=== PATIENT | male | born 1980 | race Caucasian/White ===

== ENCOUNTER 2016-10-18 13:42 | Outpatient (CLI) ==
[2013-05-24 00:30] VITALS: BMI 34.4
[2016-10-18 14:00] LABS: HEMATOCRIT 54.1 % (42.0-52.0); HEMOGLOBIN 17.2 g/dl (14.0-18.0); MEAN CORPUSCULAR HEMOGLOBIN 26.7 pg (27.0-31.0); MEAN CORPUSCULAR HGB CONC 31.8 (31.8-35.4); RED BLOOD COUNT 6.44 10^6/ul (4.70-6.10); WHITE BLOOD COUNT 6.94 K/ul (4.2-10.2)
== END 2016-10-18 13:43 | disposition home or self-care (01) ==
LOC: LAB 13:42
PROVIDERS: ATTEND Internal Medicine Hematology & Oncology
DX: D75.1 Secondary polycythemia (principal)
CPT/HCPCS: 36415; 85027; 99195

== ENCOUNTER → 2017-02-27 | Outpatient (POV) ==
[2013-05-24 00:30] VITALS: BMI 34.4
== END ==
LOC: OUTPT 00:01
PROVIDERS: ATTEND Otolaryngology
DX: H93.13 Tinnitus, bilateral (principal)
CPT/HCPCS: 92557; 92567

== ENCOUNTER 2017-04-23 16:50 | Emergency (ER) | payer OTHER ==
[2017-04-23 16:57] VITALS: BP 160/105; TEMP 99; BMI 40.1
--- NOTE | 2017-04-23 17:11 | ED.PDOC ---
General ED Provider: Dr. JEAN PAUL DEVLIN Chief Complaint: Earache Stated Complaint: bilateral ear pain Time Seen by Physician: 17:00 Mode of Arrival: Walk-In Information Source: Patient Exam Limitations: No limitations Primary Care Provider: ALIN GONZALEZ Nursing and Triage Documentation Reviewed and Agree: Yes EENT Complaint Exam - Ear Complaint/Exam Onset/Duration: 1 day Symptoms Are: Still present Timing: Constant Initial Severity: Moderate Current Severity: Mild Character: Reports: Dull pain Aggravating: Reports: None Alleviating: Reports: None Associated Signs and Symptoms: Denies: Ear trauma, Ear swelling, Discharge, Fever, Hearing loss, Bleeding, Sore throat, Headache, URI symptoms, Foreign body sensation, Rash, Pain to external ear, Pain to external face Ear Surgical History: None Vesicles to External Pinna: No Vesicles to Tragus: No TMJ Tenderness: None Mastoid Tenderness: None Tragal Tenderness: None External Canal: Normal Differential Diagnoses: Otitis Media Review of Systems - Review Of Systems Constitutional: Reports: No symptoms Eyes: Reports: No symptoms Ears, Nose, Mouth, Throat: Reports: Ear pain Respiratory: Reports: No symptoms Cardiac: Reports: No symptoms GI: Reports: No symptoms : Reports: No symptoms Musculoskeletal: Reports: No symptoms Skin: Reports: No symptoms Neurological: Reports: No symptoms Endocrine: Reports: No symptoms Hematologic/Lymphatic: Reports: No symptoms All Other Systems: Reviewed and Negative Past Medical History - Past Medical History Previously Healthy: Yes Endocrine: Reports: None Cardiovascular: Reports: Hypertension Respiratory: Reports: None Hematological: Reports: None Gastrointestinal: Reports: None Genitourinary: Reports: None Neuro/Psych: Reports: None Musculoskeletal: Reports: None Cancer: Reports: None - Surgical History General Surgical History: Reports: None - Family History Family History: Reports: Unknown - Social History Smoking Status: Current every day smoker Hx Substance Use: No Alcohol Screening: None Physical Exam - Physical Exam Appearance: Well-appearing, No pain distress, Well-nourished Eyes: ESSENCE, EOMI, Conjunctiva clear ENT: Ears normal, Nose normal, Oropharynx normal Respiratory: Airway patent, Breath sounds clear, Breath sounds equal, Respirations nonlabored Cardiovascular: RRR, Pulses normal, No rub, No murmur GI/: Soft, Nontender, No masses, Bowel sounds normal, No Organomegaly Musculoskeletal: Normal strength, ROM intact, No edema, No calf tenderness Skin: Warm, Dry, Normal color Neurological: Sensation intact, Motor intact, Reflexes intact, Cranial nerves intact, Alert, Oriented Psychiatric: Affect appropriate, Mood appropriate Critical Care Note - Critical Care Note Total Time (mins): 0 Course - Course Vital Signs: Temp Pulse Resp BP Pulse Ox 04/23/17 16:50 99 F 95 H 20 160/105 H 97 Departure - Departure Time of Disposition: 17:10 Disposition: HOME SELF-CARE Discharge Problem: Otitis media Qualifiers: Otitis media type: unspecified Chronicity: acute Laterality: bilateral Instructions: Otitis Media (ED) Condition: Good Pt referred to PMD for follow-up: Yes Allergies/Adverse Reactions: Allergies isolome Adverse Reaction (Uncoded 04/23/17 16:56) Home Medications: Ambulatory Orders Clonidine HCl [Catapres] 0.2 mg PO BID 05/20/13 Levothyroxine Sodium [Synthroid] 25 mcg PO QDAC 05/20/13 Triamterene/Hydrochlorothiazid [Dyazide] 1 cap PO BID 05/20/13 Aspirin [Aspirin Chewable] 81 mg PO DAILY 05/23/13 [place]-3 Fatty Acids/Fish Oil [Fish Oil 1,000 mg Softgel] 1 each PO DAILY Disposition Discussed With: Patient, Family
== END 2017-04-23 17:15 | disposition home or self-care (01) ==
LOC: ED 16:50
DX: H66.93 Otitis media, unspecified, bilateral (principal); F17.210 Nicotine dependence, cigarettes, uncomplicated
CPT/HCPCS: 99282

== ENCOUNTER 2017-05-18 15:01 | Emergency (ER) ==
--- NOTE | 2017-05-18 15:07 | ED.PDOC ---
General ED Provider: Dr. REGIS GRACE JR Stated Complaint: both ears are painful, no drainage. Recently treated for ear infection in April.[End]woke up this morning with bilateral ear ache 99.6 91 20 96% 162/99 8/10. htn depr anx Time Seen by Physician: 15:13 Mode of Arrival: Walk-In Information Source: Patient Exam Limitations: Other [facility] Nursing and Triage Documentation Reviewed and Agree: No Review of Systems - Review Of Systems Constitutional: Reports: No symptoms Eyes: Reports: No symptoms Ears, Nose, Mouth, Throat: Reports: Ear pain Respiratory: Reports: No symptoms Cardiac: Reports: No symptoms GI: Reports: No symptoms : Reports: No symptoms Musculoskeletal: Reports: No symptoms Skin: Reports: No symptoms Neurological: Reports: No symptoms Endocrine: Reports: No symptoms Hematologic/Lymphatic: Reports: No symptoms All Other Systems: Other Past Medical History - Past Medical History Previously Healthy: Yes Endocrine: Reports: None, Hypothyroid Cardiovascular: Reports: Hypertension, A-Fib, Other (heart murmur) Respiratory: Reports: None Hematological: Reports: None Gastrointestinal: Reports: None Genitourinary: Reports: None Neuro/Psych: Reports: None, Other (MR ) Musculoskeletal: Reports: None Cancer: Reports: None Other Pertinent Past Medical History: 04/23/17bilateral otitis, hx polycythemia vera, - Surgical History General Surgical History: Reports: None, Cholecystectomy, Hernia Repair, Other ( ear surgery), Unknown (gallbladder, ear surgery, inguinal hernia repair) - Family History Family History: Reports: Unknown - Social History Smoking Status: Current every day smoker Hx Substance Use: No Alcohol Screening: None Physical Exam - Physical Exam Appearance: Well-appearing Pain Distress: Moderate ENT: Erythema Neck: Supple Respiratory: Airway patent Neurological: Sensation intact Psychiatric: Affect appropriate Re-Evaluation - Re-Evaluation Time of Re-Evaluation: 15:39 Status: Unchanged (Prednisolone 21-acetate (a derivative of Prednisolone) is reported as an ingredient of Isolone in the following countries:[facility]) Critical Care Note - Critical Care Note Total Time (mins): 0 Departure - Departure Time of Disposition: 15:35 Disposition: HOME SELF-CARE Discharge Problem: Ear problem Otitis media Qualifiers: Chronicity: acute Laterality: bilateral Recurrence: recurrent Spontaneous tympanic membrane rupture: without spontaneous rupture Otitis externa Qualifiers: Otitis externa type: diffuse Chronicity: acute Laterality: bilateral Qualifier Code: (H60.313) Diffuse otitis externa, bilateral Instructions: Otitis Media (ED), Otitis Externa (ED) Condition: Good Pt referred to PMD for follow-up: Yes Additional Instructions: nothing in ears except liquids cortisporin for inflammation Bactrim for infection Macy for pain recheck PMD next week Prescriptions: Hydrocodone Bit/Acetaminophen [[place] 5-325] 1 - 2 tab PO Q6HR PRN #12 tablet PRN Reason: pain Sulfamethoxazole/Trimethoprim [Bactrim Ds 800/160 mg] 1 tab PO Q12HR #14 tablet Neomycin/Polymyxin B/Hc Otic [Cortisporin Otic Susp] 4 drop OT Q6H #1 bottle Allergies/Adverse Reactions: Allergies isolome Adverse Reaction (Uncoded 05/18/17 15:15) Home Medications: Ambulatory Orders Clonidine HCl [Catapres] 0.2 mg PO BID 05/20/13 Levothyroxine Sodium [Synthroid] 25 mcg PO QDAC 05/20/13 Triamterene/Hydrochlorothiazid [Dyazide] 1 cap PO BID 05/20/13 Aspirin [Aspirin Chewable] 81 mg PO DAILY 05/23/13 [place]-3 Fatty Acids/Fish Oil [Fish Oil 1,000 mg Softgel] 1 each PO DAILY Hydrocodone/Acetaminophen [[place] 10-325 Tablet] 1 each PO Q8HR #12 tablet Hydrocodone Bit/Acetaminophen [[place] 5-325] 1 - 2 tab PO Q6HR PRN #12 tablet 02/27 Neomycin/Polymyxin B/Hc Otic [Cortisporin Otic Susp] 4 drop OT Q6H #1 bottle 02/27 Sulfamethoxazole/Trimethoprim [Bactrim Ds 800/160 mg] 1 tab PO Q12HR #14 tablet 05/18/17
[2017-05-18 15:11] VITALS: BP 162/99; TEMP 99.6; BMI 36.9
== END 2017-05-18 15:44 | disposition home or self-care (01) ==
LOC: ED 15:01
DX: H60.313 Diffuse otitis externa, bilateral (principal); H66.93 Otitis media, unspecified, bilateral; F17.210 Nicotine dependence, cigarettes, uncomplicated
CPT/HCPCS: 99282

== ENCOUNTER 2017-05-31 12:44 | Outpatient (CLI) ==
[2017-05-31 13:10] LABS: HEMATOCRIT 47.7 % (42.0-52.0); HEMOGLOBIN 15.3 g/dl (14.0-18.0); MEAN CORPUSCULAR HEMOGLOBIN 25.1 pg (27.0-31.0); MEAN CORPUSCULAR HGB CONC 32.1 (31.8-35.4); MEAN CORPUSCULAR VOLUME 78.2 fl (80.0-94.0)
[2017-05-31 13:38] LABS: ANISOCYTOSIS NOT PRESENT (NOT PRESENT)
[2017-05-31 13:43] LABS: PLATELET COUNT 220 10^3/uL (140-440)
[2017-05-31 13:48] LABS: ALBUMIN/GLOBULIN RATIO 1.43; ANION GAP 11.9; BILIRUBIN,TOTAL 0.95 mg/dL (0.00-1.20); BUN/CREATININE RATIO 11.19; CALCIUM 9.4 mg/dL (8.2-10.2); CHOL/HDL RATIO 7.4 (4.5-6.4); CREATININE 1.34 mg/dL (0.60-1.10); POTASSIUM 3.9 mmol/L (3.5-5.1); TOTAL PROTEIN 6.8 g/dL (6.4-8.2)
== END 2017-05-31 12:45 | disposition home or self-care (01) ==
LOC: LAB 12:44
PROVIDERS: ATTEND Emergency Medicine
DX: E78.5 Hyperlipidemia, unspecified (principal); E03.9 Hypothyroidism, unspecified; I48.2 Chronic atrial fibrillation; R62.50 Unspecified lack of expected normal physiological development in childhood
CPT/HCPCS: 36415; 80053; 80061; 84443; 85007; 85025

== ENCOUNTER 2017-06-01 17:13 | Emergency (ER) ==
--- NOTE | 2017-06-01 17:16 | ED.PDOC ---
General ED Provider: Dr. THA ESTRADA-ER Chief Complaint: Earache Stated Complaint: his ears hurt all night==he has had ear infections "all his life" Time Seen by Physician: 17:15 Mode of Arrival: Walk-In Information Source: Patient, Family Primary Care Provider: YAAKOV BALDERAS-[facility] Nursing and Triage Documentation Reviewed and Agree: Yes EENT Complaint Exam - Ear Complaint/Exam Onset/Duration: 2 dasy Symptoms Are: Still present Timing: Constant Initial Severity: Mild Current Severity: Moderate Character: Reports: Dull pain, Aching pain, Throbbing pain Aggravating: Reports: None Alleviating: Reports: None Associated Signs and Symptoms: Reports: Hearing loss, URI symptoms. Denies: Ear trauma, Ear swelling, Discharge, Fever, Bleeding, Sore throat, Headache, Foreign body sensation, Rash, Pain to external ear, Pain to external face Related History: Reports: Similar Episode Ear Surgical History: Prior ENT Surgery Vesicles to External Pinna: No Vesicles to Tragus: No TMJ Tenderness: None Mastoid Tenderness: None Tragal Tenderness: None External Canal: Normal Tympanic Membrane: Erythema, Dullness Differential Diagnoses: Otitis Media Review of Systems - Review Of Systems Constitutional: Reports: No symptoms Eyes: Reports: No symptoms Ears, Nose, Mouth, Throat: Reports: Ear pain, Nose discharge Respiratory: Reports: No symptoms Cardiac: Reports: No symptoms GI: Reports: No symptoms : Reports: No symptoms Musculoskeletal: Reports: No symptoms Skin: Reports: No symptoms Neurological: Reports: No symptoms Endocrine: Reports: No symptoms Hematologic/Lymphatic: Reports: No symptoms All Other Systems: Reviewed and Negative Past Medical History - Past Medical History Previously Healthy: Yes Endocrine: Reports: None, Hypothyroid Cardiovascular: Reports: Hypertension, A-Fib, Other (heart murmur) Respiratory: Reports: None Hematological: Reports: None Gastrointestinal: Reports: None Genitourinary: Reports: None Neuro/Psych: Reports: None, Other (MR ) Musculoskeletal: Reports: None Cancer: Reports: None Other Pertinent Past Medical History: 04/23/17bilateral otitis, hx polycythemia vera, - Surgical History General Surgical History: Reports: None, Cholecystectomy, Hernia Repair, Other ( ear surgery), Unknown (gallbladder, ear surgery, inguinal hernia repair) - Family History Family History: Reports: Unknown - Social History Smoking Status: Current every day smoker Hx Substance Use: No Alcohol Screening: None Lives: With family Physical Exam - Physical Exam Appearance: Well-appearing, No pain distress, Well-nourished Pain Distress: Moderate Eyes: ESSENCE, EOMI, Conjunctiva clear ENT: Nose normal, Oropharynx normal, Erythema (both tms are dull, erythematous and retracted) Neck: Supple Respiratory: Airway patent, Breath sounds clear, Breath sounds equal, Respirations nonlabored Cardiovascular: RRR, Pulses normal, No rub, No murmur GI/: Soft, Nontender, No masses, Bowel sounds normal, No Organomegaly Musculoskeletal: Normal strength, ROM intact, No edema, No calf tenderness Skin: Warm, Dry, Normal color Neurological: Sensation intact, Motor intact, Reflexes intact, Cranial nerves intact, Alert, Oriented Psychiatric: Affect appropriate, Mood appropriate Critical Care Note - Critical Care Note Total Time (mins): 0 Departure - Departure Time of Disposition: 17:16 Disposition: HOME SELF-CARE Discharge Problem: Otitis media Qualifiers: Otitis media type: unspecified Chronicity: acute Laterality: unspecified laterality Qualifier Code: (H66.90) Otitis media, unspecified, unspecified ear Instructions: Otitis Media (ED) Condition: Good Pt referred to PMD for follow-up: Yes Additional Instructions: augmentin 875mg bid x 7days--norco 7.5mg q 4hrs prn pain #10--f/u wtih pcp Allergies/Adverse Reactions: Allergies isolome Adverse Reaction (Uncoded 05/18/17 15:15) Home Medications: Ambulatory Orders Clonidine HCl [Catapres] 0.2 mg PO BID 05/20/13 Levothyroxine Sodium [Synthroid] 25 mcg PO QDAC 05/20/13 Triamterene/Hydrochlorothiazid [Dyazide] 1 cap PO BID 05/20/13 Aspirin [Aspirin Chewable] 81 mg PO DAILY 05/23/13 [place]-3 Fatty Acids/Fish Oil [Fish Oil 1,000 mg Softgel] 1 each PO DAILY Hydrocodone/Acetaminophen [[place] 10-325 Tablet] 1 each PO Q8HR #12 tablet Hydrocodone Bit/Acetaminophen [[place] 5-325] 1 - 2 tab PO Q6HR PRN #12 tablet 02/27 Neomycin/Polymyxin B/Hc Otic [Cortisporin Otic Susp] 4 drop OT Q6H #1 bottle 02/27 Sulfamethoxazole/Trimethoprim [Bactrim Ds 800/160 mg] 1 tab PO Q12HR #14 tablet 05/18/17 Disposition Discussed With: Patient, Family
[2017-06-01 17:19] VITALS: BP 137/89; TEMP 97.9; BMI 36.6
== END 2017-06-01 17:58 | disposition home or self-care (01) ==
LOC: ED 17:13
DX: H66.90 Otitis media, unspecified, unspecified ear (principal)
CPT/HCPCS: 99283

== ENCOUNTER 2017-06-17 17:50 | Emergency (ER) ==
[2017-06-17 17:54] VITALS: BP 154/105; TEMP 99.4; BMI 30.4
--- NOTE | 2017-06-17 17:55 | ED.PDOC ---
General ED Provider: Dr. THA ESTRADA-ER Chief Complaint: Earache Stated Complaint: has ongoing trouble with ear pain--has appt this month with ent in [place] Time Seen by Physician: 17:53 Mode of Arrival: Walk-In Information Source: Patient, Family Exam Limitations: No limitations Primary Care Provider: YAAKOV [facility]AS-[facility] Nursing and Triage Documentation Reviewed and Agree: Yes EENT Complaint Exam - Ear Complaint/Exam Onset/Duration: 2 dasy Symptoms Are: Still present Timing: Constant Initial Severity: Mild Current Severity: Mild Character: Reports: Dull pain, Aching pain Aggravating: Reports: None Alleviating: Reports: None Associated Signs and Symptoms: Reports: URI symptoms. Denies: Ear trauma, Ear swelling, Discharge, Fever, Hearing loss, Bleeding, Sore throat, Headache, Foreign body sensation, Rash, Pain to external ear, Pain to external face Related History: Reports: Similar Episode Ear Surgical History: Prior ENT Surgery Vesicles to External Pinna: No Vesicles to Tragus: No TMJ Tenderness: None Mastoid Tenderness: None Tragal Tenderness: None External Canal: Normal Tympanic Membrane: Erythema, Dullness Differential Diagnoses: Otitis Media Review of Systems - Review Of Systems Constitutional: Reports: No symptoms Eyes: Reports: No symptoms Ears, Nose, Mouth, Throat: Reports: Ear pain Respiratory: Reports: No symptoms Cardiac: Reports: No symptoms GI: Reports: No symptoms : Reports: No symptoms Musculoskeletal: Reports: No symptoms Skin: Reports: No symptoms Neurological: Reports: No symptoms Endocrine: Reports: No symptoms Hematologic/Lymphatic: Reports: No symptoms All Other Systems: Reviewed and Negative Past Medical History - Past Medical History Previously Healthy: Yes Endocrine: Reports: None, Hypothyroid Cardiovascular: Reports: Hypertension, A-Fib, Other (heart murmur) Respiratory: Reports: None Hematological: Reports: None Gastrointestinal: Reports: None Genitourinary: Reports: None Neuro/Psych: Reports: None, Other (MR ) Musculoskeletal: Reports: None Cancer: Reports: None Other Pertinent Past Medical History: 04/23/17bilateral otitis, hx polycythemia vera, - Surgical History General Surgical History: Reports: None, Cholecystectomy, Hernia Repair, Other ( ear surgery), Unknown (gallbladder, ear surgery, inguinal hernia repair) - Family History Family History: Reports: Unknown - Social History Smoking Status: Current every day smoker Hx Substance Use: No Alcohol Screening: None Lives: With family Physical Exam - Physical Exam Appearance: Well-appearing, No pain distress, Well-nourished Pain Distress: Mild Eyes: ESSENCE, EOMI, Conjunctiva clear ENT: Ears normal, Nose normal, Erythema Neck: Supple Respiratory: Airway patent, Breath sounds clear, Breath sounds equal, Respirations nonlabored Cardiovascular: RRR GI/: Soft, Nontender, No masses, Bowel sounds normal, No Organomegaly Musculoskeletal: Normal strength Skin: Warm Neurological: Sensation intact, Alert, Oriented Psychiatric: Affect appropriate, Mood appropriate Critical Care Note - Critical Care Note Total Time (mins): 0 Departure - Departure Time of Disposition: 17:55 Disposition: HOME SELF-CARE Discharge Problem: Otitis media Qualifiers: Otitis media type: unspecified Chronicity: acute Laterality: unspecified laterality Qualifier Code: (H66.90) Otitis media, unspecified, unspecified ear Instructions: Otitis Media (ED) Condition: Good Pt referred to PMD for follow-up: Yes Additional Instructions: augmentin 875mg bid x 10 days==norco 5 mg q 4hrs prn pain #10--keep ent appt but f/u wtih pcp this week Allergies/Adverse Reactions: Allergies isolome Adverse Reaction (Uncoded 05/18/17 15:15) Home Medications: Ambulatory Orders Clonidine HCl [Catapres] 0.2 mg PO BID 05/20/13 Levothyroxine Sodium [Synthroid] 25 mcg PO QDAC 05/20/13 Triamterene/Hydrochlorothiazid [Dyazide] 1 cap PO BID 05/20/13 Aspirin [Aspirin Chewable] 81 mg PO DAILY 05/23/13 [place]-3 Fatty Acids/Fish Oil [Fish Oil 1,000 mg Softgel] 1 each PO DAILY Hydrocodone/Acetaminophen [[place] 10-325 Tablet] 1 each PO Q8HR #12 tablet Hydrocodone Bit/Acetaminophen [[place] 5-325] 1 - 2 tab PO Q6HR PRN #12 tablet 02/27 Neomycin/Polymyxin B/Hc Otic [Cortisporin Otic Susp] 4 drop OT Q6H #1 bottle 02/27 Sulfamethoxazole/Trimethoprim [Bactrim Ds 800/160 mg] 1 tab PO Q12HR #14 tablet 05/18/17 Disposition Discussed With: Patient, Family
== END 2017-06-17 18:01 | disposition home or self-care (01) ==
LOC: ED 17:50
DX: H66.90 Otitis media, unspecified, unspecified ear (principal); F17.210 Nicotine dependence, cigarettes, uncomplicated
CPT/HCPCS: 99282

== ENCOUNTER 2017-06-22 12:07 | Emergency (ER) | payer OTHER ==
[2017-06-22 12:14] VITALS: BP 144/100; TEMP 97.9; BMI 37.4
--- NOTE | 2017-06-22 12:45 | ED.PDOC ---
General ED Provider: Dr. TERESA DYE Chief Complaint: Non-specific Complaint Stated Complaint: right sided headache and bilateral arm aches, onset 4 days ago. 3 days ago seen in [facility] ED, dx'd and treated for elevated BP and sx resolved. Recurred this morning on awaking. No other pain, dyspnea, weakness, or alteration in mental status. Time Seen by Physician: 12:38 Mode of Arrival: Walk-In Information Source: Patient, Family Exam Limitations: Other (mental retardation) Primary Care [facility] Nursing and Triage Documentation Reviewed and Agree: Yes Review of Systems - Review Of Systems Constitutional: Reports: No symptoms Eyes: Reports: No symptoms Ears, Nose, Mouth, Throat: Reports: No symptoms Respiratory: Reports: No symptoms Cardiac: Reports: No symptoms GI: Reports: No symptoms : Reports: No symptoms Musculoskeletal: Reports: Muscle pain (bilateral arm soreness) Skin: Reports: No symptoms Neurological: Reports: Headache (right sided [place], occasionally radiating to right face) Endocrine: Reports: No symptoms Hematologic/Lymphatic: Reports: No symptoms All Other Systems: Reviewed and Negative Past Medical History - Past Medical History Previously Healthy: Yes Endocrine: Reports: None, Hypothyroid Cardiovascular: Reports: Hypertension, A-Fib, Other (heart murmur) Respiratory: Reports: None Hematological: Reports: None Gastrointestinal: Reports: None Genitourinary: Reports: None Neuro/Psych: Reports: None, Other (MR ) Musculoskeletal: Reports: None Cancer: Reports: None Other Pertinent Past Medical History: 04/23/17bilateral otitis, hx polycythemia vera, - Surgical History General Surgical History: Reports: None, Cholecystectomy, Hernia Repair, Other ( ear surgery), Unknown (gallbladder, ear surgery, inguinal hernia repair) - Family History Family History: Reports: Unknown - Social History Smoking Status: Current every day smoker Hx Substance Use: No Alcohol Screening: None Lives: Alone - Immunizations Tetanus Shot up to Date: Yes Influenza Vaccine within 12 Months: No Pneumococcal Vaccine up to Date: No Physical Exam - Physical Exam Appearance: Well-appearing, No pain distress, Well-nourished Ill-appearing: None Pain Distress: None Eyes: ESSENCE, EOMI, Conjunctiva clear ENT: Ears normal, Nose normal, Oropharynx normal Neck: Supple Respiratory: Airway patent, Breath sounds clear, Breath sounds equal, Respirations nonlabored Cardiovascular: RRR, Pulses normal, No rub, No murmur GI/: Soft, Nontender, No masses, Bowel sounds normal, No Organomegaly Musculoskeletal: Normal strength, ROM intact, No edema, No calf tenderness Skin: Warm, Dry, Normal color Neurological: Sensation intact (pressure on right atlanto-occipital junction decreases headache.), Motor intact, Reflexes intact, Cranial nerves intact, Alert, Oriented Psychiatric: Affect appropriate, Mood appropriate Critical Care Note - Critical Care Note Total Time (mins): 0 Course - Course Hematology/Chemistry: 06/22/17 12:53 06/22/17 12:53 Orders, Labs, Meds: Lab Review 06/22/17 12:53 WBC 6.15 RBC 5.82 Hgb 14.6 Hct 46.0 MCV 79.0 L MCH 25.1 L MCHC 31.7 L RDW Coeff of Mera 15.2 H Plt Count 136 L Immature Gran % (Auto) 0.5 Neut % (Auto) 66.4 Lymph % (Auto) 17.9 [place] % (Auto) 8.8 Eos % (Auto) 5.4 Baso % (Auto) 1.0 Immature Gran # (Auto) 0.0 Neut # 4.1 Lymph # 1.1 [place] # 0.5 Eos # 0.3 Baso # 0.1 Sodium 138 Potassium 4.0 Chloride 99 Carbon Dioxide 30 Anion Gap 13.0 BUN 17 Creatinine 1.33 H Estimated GFR (MDRD) 60.00 BUN/Creatinine Ratio 12.78 Glucose 85 Calcium 9.4 Total Bilirubin 1.07 AST 24 ALT 25 Alkaline Phosphatase 72 Total Protein 6.4 Albumin 3.6 Globulin 2.8 Albumin/Globulin Ratio 1.29 Orders Category Date Time Status CBC W/ AUTO DIFF Stat LAB 06/22/17 12:53 Completed COMPREHENSIVE METABOLIC PANEL Stat LAB 06/22/17 12:53 Completed Vital Signs: Temp Pulse Resp BP Pulse Ox 06/22/17 12:08 97.9 F 86 18 144/100 H 95 MARTINE Risk Score MARTINE Risk Score: Risk Score Odds of by 30D 0 0.1 (0.1-0.2) 1 0.3 (0.2-0.3) 2 0.4 (0.3-0.5) 3 0.7 (0.6-0.9) 4 1.2 (1.0-1.5) 5 2.2 (1.9-2.6) 6 3.0 (2.5-3.6) 7 4.8 (3.8-6.1) Departure - Departure Time of Disposition: 13:39 Disposition: HOME SELF-CARE Discharge Problem: Headache Instructions: General Headache (ED) Condition: Good Pt referred to PMD for follow-up: No (see PCP if still symptomatic after 2 days) Allergies/Adverse Reactions: Allergies isolome Adverse Reaction (Uncoded 06/17/17 17:55) Home Medications: Ambulatory Orders Aspirin [Aspirin Chewable] 81 mg PO DAILY 05/23/13 Hydrocodone Bit/Acetaminophen [[place] 5-325] 1 - 2 tab PO Q6HR PRN #12 tablet 02/27 Disposition Discussed With: Patient, Family
[2017-06-22 13:02] LABS: BASOPHILS # (AUTO) 0.1 K/uL (0-0.2); EOSINOPHILS # (AUTO) 0.3 K/ul (0.0-0.7); EOSINOPHILS % (AUTO) 5.4 % (0.0-7.0); HEMOGLOBIN 14.6 g/dl (14.0-18.0); IMMATURE GRANULOCYTE % (AUTO) 0.5 % (0.0-5.0); LYMPHOCYTES # (AUTO) 1.1 K/uL (0.60-3.4); LYMPHOCYTES % (AUTO) 17.9 (10.0-50.0); MEAN CORPUSCULAR HEMOGLOBIN 25.1 pg (27.0-31.0); MEAN CORPUSCULAR HGB CONC 31.7 (31.8-35.4); MONOCYTES # (AUTO) 0.5 K/uL (0.4-2.0); MONOCYTES % (AUTO) 8.8 (0-10); NEUTROPHILS # (AUTO) 4.1 K/ul (2.0-6.9); NEUTROPHILS % (AUTO) 66.4; PLATELET COUNT 136 10^3/uL (140-440); RED BLOOD COUNT 5.82 10^6/ul (4.70-6.10); WHITE BLOOD COUNT 6.15 K/ul (4.2-10.2)
[2017-06-22 13:22] LABS: ALBUMIN 3.6 g/dL (3.4-5.0); ALBUMIN/GLOBULIN RATIO 1.29; BILIRUBIN,TOTAL 1.07 mg/dL (0.00-1.20); BUN/CREATININE RATIO 12.78; CALCIUM 9.4 mg/dL (8.2-10.2); CREATININE 1.33 mg/dL (0.60-1.10); TOTAL PROTEIN 6.4 g/dL (6.4-8.2)
== END 2017-06-22 13:45 | disposition home or self-care (01) ==
LOC: ED 12:07
DX: R51 Headache (principal); I10 Essential (primary) hypertension; M79.602 Pain in left arm; M79.601 Pain in right arm; E03.9 Hypothyroidism, unspecified; F79 Unspecified intellectual disabilities; F17.210 Nicotine dependence, cigarettes, uncomplicated
CPT/HCPCS: 36415; 80053; 85025; 99283

== ENCOUNTER 2017-06-24 13:25 | Emergency (ER) | payer OTHER ==
--- NOTE | 2017-06-24 13:31 | ED.PDOC ---
General ED Provider: Dr. REGIS GRACE JR Chief Complaint: Earache Stated Complaint: called mother complaining of chest pain, informed ems ear and jaw pain, on evaluation complains of ear pain radiating to jaw with "things coming out like I am bleeding" and things coming out of legs, no other evidence of hallucinations. ears are cloudy right TM with possible chronic perforation of TM no tubes visible on exam EACs slightly excoriated no edema.states ears hurting ::discussed with Dr Jain no history of schizophrenia no specific concerns but not doing as well concern something not apparent. Bilat ear pain, ringing. Pain sides of head. for months per pt's mother. States is causing pain to chin and abd pain. Hx MR. Has reported chest et leg pain to mother. [ End ] 99.1 92 20 97% 124/86 02/20. not today, ran out of percocet x 2 days. : 06/22/17 DYE: right sided headache bilateral arm aches,4 days. 3 days ago seen in [facility] ED, dx'd and treated for elevated BP and sx resolved. Recurred this morning on awaking. 06/22/17 144/100. : 06/17/17: Earache: ongoingear pain- appt this month ent paduca: Otitis Media augmentin 875mg bid x 10 days==norco 5 mg q 4hrs prn pain #10--keep ent appt but f/u wtih pcp this week. : SEAN: 06/01/17: his ears hurt all night ear infections "all his life "(both tms are dull, erythematous and retracted):acute Otitis media:augmentin 875mg -norco 7.5mg. : GRACE: 05/18/17:ears painful, no drainage. treated ear infection April. this morning with bilateral ear ache 99.6 91 20 96% 162/99 . : 04/23/17 RAFATI:bilateral ear pain:1 day: acute: bilateral:Otitis Media. : 05/23/13: spider bite-:3 days:right lateral leg:Swelling, Raised, Painful: Erythema, Lymphangitic streaking, Weeping skin, Wet ulceration. Lortab 5-500: ADMITTED INPATIENT: Cellulitis of leg: Insect Bite or Sting (ED). : (unsure if bitten"it looks like one of those brown spiders doesnt it?")(4x6 cm reddened tender area with vesiculations, central black 5x10 mm flat necrotic area). I & D Procedure::necrotic skin bluntly debrided along with rim of vesiculated skin (about 2-3 mm) no exudate, antibiotic ointment applied (REGIS GRACE JR). recheck one week- sooner if not improving. return if redness increasing, if streaking or if increased pain. do not use antibiotic ointment used yesterday until completely healed Time Seen by Physician: 13:30 Mode of Arrival: Ambulance Information Source: Patient, Family Exam Limitations: Other [facility] and Triage Documentation Reviewed and Agree: No Review of Systems - Review Of Systems Constitutional: Reports: Malaise, Weakness Eyes: Reports: No symptoms Ears, Nose, Mouth, Throat: Reports: Ear pain Respiratory: Reports: No symptoms Cardiac: Reports: Chest pain, Irregular heart rate, Palpitations GI: Reports: No symptoms : Reports: No symptoms Musculoskeletal: Reports: Muscle pain Skin: Reports: No symptoms Neurological: Reports: Cognitive dysfunction Endocrine: Reports: No symptoms Hematologic/Lymphatic: Reports: No symptoms All Other Systems: Other Past Medical History - Past Medical History Previously Healthy: Yes Endocrine: Reports: Hypothyroid Cardiovascular: Reports: Hypertension, A-Fib, Other (heart murmur) Respiratory: Reports: Other ( hx bilateral otitis) Hematological: Reports: Other (hx polycythemia vera) Gastrointestinal: Reports: None, Gallstones Genitourinary: Reports: None Neuro/Psych: Reports: Anxiety, Depression, Other (MR (mental retardation)) Musculoskeletal: Reports: None Cancer: Reports: None (heart murmur htn depr anx bilat myrigotomy(mental retardation)) Other Pertinent Past Medical History: 04/23/17bilateral otitis - Surgical History General Surgical History: Reports: None, Cholecystectomy, Hernia Repair, Other ( ear surgery), Unknown (gallbladder, ear surgery, inguinal hernia repair) - Family History Family History: Reports: Unknown - Social History Smoking Status: Current every day smoker Hx Substance Use: No Alcohol Screening: None - Immunizations Influenza Vaccine within 12 Months: No Pneumococcal Vaccine up to Date: No Physical Exam - Physical Exam Appearance: Well-appearing, Obese Pain Distress: Mild Eyes: ESSENCE, EOMI, Conjunctiva clear ENT: Nose normal, Oropharynx normal Neck: Supple Respiratory: Airway patent, Breath sounds clear, Breath sounds equal, Respirations nonlabored Cardiovascular: Pulses normal, Irregular rhythm GI/: Soft, Nontender, No masses, Bowel sounds normal, No Organomegaly Musculoskeletal: Normal strength, ROM intact, No edema, No calf tenderness Skin: Warm, Dry, Normal color Neurological: Sensation intact, Motor intact, Reflexes intact, Cranial nerves intact, Alert, Oriented Psychiatric: Affect appropriate, Mood appropriate Interpretation - Radiology Interpretation Radiology Interpretation By: Radiologist Radiology Results: No acute changes Exam Interpreted: CXR - EKG Interpretation Time of EKG #1: 13:40 Rate: Normal Rhythm: Other (AFIB) Critical Care Note - Critical Care Note Total Time (mins): 20 Course - Course Hematology/Chemistry: 06/24/17 14:00 06/24/17 14:00 Departure - Departure Time of Disposition: 15:23 Disposition: HOME SELF-CARE Discharge Problem: Ear problem, Chest pain not due to acute coronary syndrome Instructions: Otitis Media (ED) Condition: Good Pt referred to PMD for follow-up: Yes Additional Instructions: follow up withy PMD one week follow up with ENT as scheduled given solumedrol in ER for ears given [place] once take Tylenol four times a day only as needed for pain finish augmentin antibiotic Labs show no evidence hear injury AFIB is present on your EKG Allergies/Adverse Reactions: Allergies isolome Adverse Reaction (Uncoded 06/17/17 17:55) Home Medications: Ambulatory Orders Aspirin [Aspirin Chewable] 81 mg PO DAILY 05/23/13 Amoxicillin/Potassium Clav [Augmentin 875-125 mg Tab] 1 tab PO Q12HR 06/24/17 Sotalol HCl [Sotalol] 80 mg PO DAILY 06/24/17
[2017-06-24 13:45] VITALS: BP 124/86; TEMP 99.1; BMI 37.0
[2017-06-24] MEDS ORDERED: CORTISPORIN OTIC SUSP OT STA (13:53)
[2017-06-24] MEDS ORDERED: NAPROSYN PO STA (13:53)
[2017-06-24 14:10] LABS: BASOPHILS # (AUTO) 0.1 K/uL (0-0.2); BASOPHILS % (AUTO) 0.8 % (0.0-3.0); EOSINOPHILS # (AUTO) 0.1 K/ul (0.0-0.7); EOSINOPHILS % (AUTO) 1.4 % (0.0-7.0); HEMATOCRIT 48.6 % (42.0-52.0); HEMOGLOBIN 15.8 g/dl (14.0-18.0); IMMATURE GRANULOCYTE % (AUTO) 0.6 % (0.0-5.0); LYMPHOCYTES # (AUTO) 0.9 K/uL (0.60-3.4); LYMPHOCYTES % (AUTO) 14.4 (10.0-50.0); MEAN CORPUSCULAR HEMOGLOBIN 25.2 pg (27.0-31.0); MEAN CORPUSCULAR HGB CONC 32.5 (31.8-35.4); MEAN CORPUSCULAR VOLUME 77.4 fl (80.0-94.0); MONOCYTES # (AUTO) 0.6 K/uL (0.4-2.0); MONOCYTES % (AUTO) 9.2 (0-10); NEUTROPHILS # (AUTO) 4.8 K/ul (2.0-6.9); NEUTROPHILS % (AUTO) 73.6; PLATELET COUNT 165 10^3/uL (140-440); RED BLOOD COUNT 6.28 10^6/ul (4.70-6.10); WHITE BLOOD COUNT 6.55 K/ul (4.2-10.2)
[2017-06-24 14:23] LABS: ABG BASE EXCESS 1 (-2.0-2.0); ABG HCO3 25 (22.0-26.0); ABG PH 7.426 (7.35-7.45); ABG TCO2 26 (22.0-28.0)
--- NOTE | 2017-06-24 14:36 | DI ---
EXAM: CHEST FRONTAL VIEW HISTORY: Chest pain. COMPARISON: 11/15/2010 FINDINGS: Heart size remains within normal limits. No acute infiltrates are seen. No vascular conge stion. There is no consolidation, visible pleural fluid or pneumothorax. Bones reveal no acute fract ure. IMPRESSION: No acute cardiopulmonary process.
[2017-06-24] MEDS ORDERED: NORCO 5-325 PO STA (14:45)
[2017-06-24] MEDS ORDERED: SOLU-MEDROL 125 MG IM STA (14:45)
[2017-06-24 15:02] LABS: ALBUMIN/GLOBULIN RATIO 1.29; ANION GAP 15.6; BILIRUBIN,TOTAL 1.07 mg/dL (0.00-1.20); BUN/CREATININE RATIO 14.87; CALCIUM 9.5 mg/dL (8.2-10.2); CREATININE 1.21 mg/dL (0.60-1.10); POTASSIUM 3.6 mmol/L (3.5-5.1); TOTAL PROTEIN 7.1 g/dL (6.4-8.2); TROPONIN I 0.017 ng/ml (0.0000-0.4000)
== END 2017-06-24 15:45 | disposition home or self-care (01) ==
LOC: ED 13:25
DX: R07.9 Chest pain, unspecified (principal); H92.09 Otalgia, unspecified ear; F79 Unspecified intellectual disabilities; I10 Essential (primary) hypertension; F17.210 Nicotine dependence, cigarettes, uncomplicated; Z79.899 Other long term (current) drug therapy
CPT/HCPCS: 36415; 80053; 82550; 82803; 83605; 83880; 84145; 84484; 85025; 85379; 87040; 93005; 93010; 96372; 99283

== ENCOUNTER 2017-08-12 16:24 | Outpatient (CLI) | payer OTHER ==
[2017-08-12 17:02] LABS: FLU INTERNAL QC INTERNAL QC VALID; RAPID FLU A NEGATIVE (NEGATIVE); RAPID FLU B NEGATIVE (NEGATIVE)
== END 2017-08-12 16:25 | disposition home or self-care (01) ==
LOC: LAB 16:24
PROVIDERS: ATTEND Emergency Medicine
DX: J06.9 Acute upper respiratory infection, unspecified (principal)
CPT/HCPCS: 87651; 87804; 87880

== ENCOUNTER 2017-08-27 16:14 | Emergency (ER) ==
[2017-08-27 16:19] VITALS: BP 156/112; TEMP 98.5; BMI 35.7
--- NOTE | 2017-08-27 16:23 | ED.PDOC ---
General ED Provider: Dr. REGIS GRACE JR Chief Complaint: Respiratory Complaint Stated Complaint: complains of sinus drainage--head pressure--ears pressure-- occ cough with yellow mucous--no fever-pt is special needs[ End ]1week 98.5 72 20 97% 156/112 11/23 Time Seen by Physician: 17:30 Mode of Arrival: Walk-In Information Source: Patient Exam Limitations: No limitations [facility] T[facility] Documentation Reviewed and Agree: No Review of Systems - Review Of Systems Constitutional: Reports: Malaise Eyes: Reports: No symptoms Ears, Nose, Mouth, Throat: Reports: Ear pain, Nose discharge Respiratory: Reports: Cough Cardiac: Reports: No symptoms GI: Reports: No symptoms : Reports: No symptoms Musculoskeletal: Reports: No symptoms Skin: Reports: No symptoms Neurological: Reports: No symptoms Endocrine: Reports: No symptoms Hematologic/Lymphatic: Reports: No symptoms All Other Systems: Other Past Medical History - Past Medical History Previously Healthy: Yes Endocrine: Reports: Hypothyroid Cardiovascular: Reports: Hypertension, A-Fib, Other (heart murmur) Respiratory: Reports: Other ( hx bilateral otitis) Hematological: Reports: Other (hx polycythemia vera) Gastrointestinal: Reports: None, Gallstones Genitourinary: Reports: None Neuro/Psych: Reports: Anxiety, Depression, Other (MR (mental retardation)) Musculoskeletal: Reports: None Cancer: Reports: None Other Pertinent Past Medical History: 04/23/17bilateral otitis, (mental retardation) - Surgical History General Surgical History: Reports: None, Cholecystectomy, Hernia Repair ( inguinal hernia repair), Other (ear surgery- bilat myrigotomy), Unknown ( gallbladder, ear surgery, inguinal hernia repair) - Family History Family History: Reports: Unknown - Social History Smoking Status: Current every day smoker Hx Substance Use: No Alcohol Screening: None - Immunizations Influenza Vaccine within 12 Months: No Pneumococcal Vaccine up to Date: No Physical Exam - Physical Exam Appearance: Well-appearing Ill-appearing: Mild Pain Distress: Mild Eyes: ESSENCE, EOMI, Conjunctiva clear ENT: Erythema Neck: Supple Respiratory: Airway patent, Rhonchi Cardiovascular: RRR, Pulses normal, No rub, No murmur GI/: Soft, Nontender, No masses, Bowel sounds normal, No Organomegaly Musculoskeletal: Normal strength, ROM intact, No edema, No calf tenderness Skin: Warm, Dry, Normal color Neurological: Sensation intact, Motor intact, Reflexes intact, Cranial nerves intact, Alert, Oriented Psychiatric: Affect appropriate, Mood appropriate Interpretation - Radiology Interpretation Radiology Interpretation By: ED Physician Radiology Results: Negative Exam Interpreted: CXR Critical Care Note - Critical Care Note Total Time (mins): 0 Course - Course Orders, Labs, Meds: Orders Category Date Time Status Methylprednisolone Sod Succ/Pf [Solu-Medrol 125 mg] MEDS 08/27/17 17:33 Discontinued 125 mg IM ONCE STA Sulfamethoxazole/Trimethoprim [Bactrim Ds 800/160 mg] MEDS 08/27/17 17:33 Discontinued 1 tab PO ONCE STA CHEST, 2 VIEWS PA & LAT Stat RADS 08/27/17 17:33 Taken Medications Discontinued Medications Generic Name Dose Route Start Last Admin Trade Name Freq PRN Reason Stop Dose Admin Methylprednisolone Sodium Succinate 125 mg 08/27/17 17:33 08/27/17 17:51 Solu-Medrol 125 Mg IM 08/27/17 17:34 125 mg ONCE STA Administration Trimethoprim/Sulfamethoxazole 1 tab 08/27/17 17:33 08/27/17 17:49 Bactrim Ds 800/160 Mg PO 08/27/17 17:34 1 tab ONCE STA Administration Vital Signs: Temp Pulse Resp BP Pulse Ox 08/27/17 16:15 98.5 F 72 20 156/112 H 97 Departure - Departure Time of Disposition: 18:23 Disposition: HOME SELF-CARE Discharge Problem: Sinusitis, acute Instructions: Rhinosinusitis (ED), Allergies (ED) Condition: Good Pt referred to PMD for follow-up: Yes Additional Instructions: antibiotic until gone follow up with PMD one week may use cough medication as needed Prescriptions: Sulfamethoxazole/Trimethoprim [Bactrim Ds Tablet] 1 tab PO Q12HR #20 tablet Guaifenesin/Codeine Phosphate [Robitussin AC Syrup] 10 ml PO Q6H PRN #240 ml PRN Reason: Cough Allergies/Adverse Reactions: Allergies isolome Adverse Reaction (Uncoded 08/27/17 16:20) Home Medications: Ambulatory Orders Aspirin [Aspirin Chewable] 81 mg PO DAILY 05/23/13 Sotalol HCl [Sotalol] 80 mg PO DAILY 06/24/17 Guaifenesin/Codeine Phosphate [Robitussin AC Syrup] 10 ml PO Q6H PRN #240 ml Sulfamethoxazole/Trimethoprim [Bactrim Ds Tablet] 1 tab PO Q12HR #20 tablet
[2017-08-27] MEDS ORDERED: BACTRIM DS 800/160 MG PO STA (17:33)
[2017-08-27] MEDS ORDERED: SOLU-MEDROL 125 MG IM STA (17:33)
--- NOTE | 2017-08-28 04:24 | DI ---
EXAM: Chest, two views, 08/27/2017 HISTORY: Cough COMPARISON: 06/24/2017 FINDINGS / IMPRESSION: Cardiomediastinal contours appear stable. Basilar interstitial opacitis may relate to atelectasis or pneumonitis. There is no focal pulmonary consolidation. No pleural effusio n or pneumothorax.
== END 2017-08-27 18:33 | disposition home or self-care (01) ==
LOC: ED 16:14
DX: J01.90 Acute sinusitis, unspecified (principal); F17.210 Nicotine dependence, cigarettes, uncomplicated
CPT/HCPCS: 96372; 99283

== ENCOUNTER 2017-09-20 16:04 | Outpatient (CLI) ==
[2017-09-20 16:08] LABS: FLU INTERNAL QC INTERNAL QC VALID; RAPID FLU A NEGATIVE (NEGATIVE); RAPID FLU B NEGATIVE (NEGATIVE)
== END 2017-09-20 16:05 | disposition home or self-care (01) ==
LOC: LAB 16:04
PROVIDERS: ATTEND Emergency Medicine
DX: J06.9 Acute upper respiratory infection, unspecified (principal)
CPT/HCPCS: 87651; 87804; 87880

== ENCOUNTER 2017-09-28 15:54 | Emergency (ER) ==
[2017-09-28 16:04] VITALS: BP 138/98; TEMP 98; BMI 36.8
[2017-09-28] MEDS ORDERED: DECADRON 4 MG/ML SDV IM STA (16:22)
--- NOTE | 2017-09-28 16:28 | ED.PDOC ---
General ED Provider: Dr. YAAKOV BALDERAS Chief Complaint: Respiratory Complaint Stated Complaint: sinus drainage, coughing,. ear pain Time Seen by Physician: 16:26 Mode of Arrival: Walk-In Information Source: Patient Primary Care Provider: YAAKOV [facility] Nursing and Triage Documentation Reviewed and Agree: Yes Respiratory Complaint Exam - Respiratory Complaint/Exam Symptoms Are: Still present Timing: Constant Initial Severity: Mild Current Severity: Mild Location: Chest Character: Reports: Productive cough Aggravating: Reports: Allergens, URI Alleviating: Reports: None Associated Signs and Symptoms: Reports: URI, Nasal congestion, Hoarseness. Denies: Rapid breathing, Dyspnea, Fever, Chills, Chest pain, Pleuritic chest pain, Wheezing, Hemoptysis, Dizziness, Calf pain, Calf swelling, Edema, Sinus discomfort, Vomiting, Sore throat, Weight loss, Decreased oral intake, Increased thirst, Increased appetite, Increased urination Related History: Reports: Similar episode History of Healthcare-Acquired Pneumonia: No Related Surgical History: Reports: None Pulmonary Embolism Risk Factors: None Cardiac Risk Factors: Reports: None Tuberculosis Risk Factors: Reports: None Status Asthmaticus Risk Factors: Reports: None Home Oxygen Use: No Recent Stress Test: No Recent Echo/LV Function: No Current Antibiotic Use: No Current Asthma Medication Use: No Respiratory Distress: None Inadequate Respiratory Effort: No Dysphagia Present: No Stridor Present: No JVD Present: No Accessory Muscle Use: No Retractions: Not Present Diminished Breath Sounds: No Sinus Tenderness: None Grunting Respirations: No Kussmaul Respirations: No Differential Diagnoses: URI Review of Systems - Review Of Systems Constitutional: Reports: No symptoms Eyes: Reports: No symptoms Ears, Nose, Mouth, Throat: Reports: Ear pain, Nose discharge, Throat pain Respiratory: Reports: No symptoms Cardiac: Reports: No symptoms GI: Reports: No symptoms : Reports: No symptoms Musculoskeletal: Reports: No symptoms Skin: Reports: No symptoms Neurological: Reports: No symptoms Endocrine: Reports: No symptoms Hematologic/Lymphatic: Reports: No symptoms All Other Systems: Reviewed and Negative Past Medical History - Past Medical History Previously Healthy: Yes Endocrine: Reports: Hypothyroid Cardiovascular: Reports: Hypertension, A-Fib, Other (heart murmur) Respiratory: Reports: Other ( hx bilateral otitis) Hematological: Reports: Other (hx polycythemia vera) Gastrointestinal: Reports: None, Gallstones Genitourinary: Reports: None Neuro/Psych: Reports: Anxiety, Depression, Other (MR (mental retardation)) Musculoskeletal: Reports: None Cancer: Reports: None Other Pertinent Past Medical History: 04/23/17bilateral otitis, (mental retardation) - Surgical History General Surgical History: Reports: None, Cholecystectomy, Hernia Repair ( inguinal hernia repair), Other (ear surgery- bilat myrigotomy), Unknown ( gallbladder, ear surgery, inguinal hernia repair) - Family History Family History: Reports: Unknown - Social History Smoking Status: Never smoker Hx Substance Use: No Alcohol Screening: None - Immunizations Influenza Vaccine within 12 Months: No Pneumococcal Vaccine up to Date: No Physical Exam - Physical Exam Appearance: Well-appearing, No pain distress, Well-nourished Eyes: ESSENCE, EOMI, Conjunctiva clear ENT: Ears normal, Nose normal, Oropharynx normal Respiratory: Airway patent, Breath sounds clear, Breath sounds equal, Respirations nonlabored Cardiovascular: RRR, Pulses normal, No rub, No murmur GI/: Soft, Nontender, No masses, Bowel sounds normal, No Organomegaly Musculoskeletal: Normal strength, ROM intact, No edema, No calf tenderness Skin: Warm, Dry, Normal color Neurological: Sensation intact, Motor intact, Reflexes intact, Cranial nerves intact, Alert, Oriented Psychiatric: Affect appropriate, Mood appropriate Critical Care Note - Critical Care Note Total Time (mins): 0 Course - Course Orders, Labs, Meds: Orders Category Date Time Status Dexamethasone 4 mg/ml Inj [Decadron 4 mg/ml Sdv] MEDS 09/28/17 16:22 Discontinued 4 mg IM ONCE STA Medications Discontinued Medications Generic Name Dose Route Start Last Admin Trade Name Freq PRN Reason Stop Dose Admin Dexamethasone Sodium Phosphate 4 mg 09/28/17 16:22 Decadron 4 Mg/Ml Sdv IM 09/28/17 16:23 ONCE STA Vital Signs: Temp Pulse Resp BP Pulse Ox 09/28/17 15:55 98.0 F 71 20 138/98 H 98 Departure - Departure Time of Disposition: 16:46 Disposition: HOME SELF-CARE Discharge Problem: URTI (acute upper respiratory infection) Instructions: Upper Respiratory Infection (ED) Condition: Good Pt referred to PMD for follow-up: Yes Additional Instructions: Increase hydration Probiotics F/u at [facility] Prescriptions: Amoxicillin/Potassium Clav [Augmentin 500-125 mg Tab] 1 tab PO Q12HR #20 tablet Benzonatate [Tessalon Perles] 200 mg PO TID #30 capsule Prednisone 10 mg PO BIDWM #14 tablet Allergies/Adverse Reactions: Allergies isolome Adverse Reaction (Uncoded 09/28/17 16:04) Home Medications: Ambulatory Orders Aspirin [Aspirin Chewable] 81 mg PO DAILY 05/23/13 Guaifenesin/Codeine Phosphate [Robitussin AC Syrup] 10 ml PO Q6H PRN #240 ml Sulfamethoxazole/Trimethoprim [Bactrim Ds Tablet] 1 tab PO Q12HR #20 tablet Amoxicillin/Potassium Clav [Augmentin 500-125 mg Tab] 1 tab PO Q12HR #20 tablet 09/28/17 Benzonatate [Tessalon Perles] 200 mg PO TID #30 capsule 09/28/17 Prednisone 10 mg PO BIDWM #14 tablet 09/28/17 Disposition Discussed With: Patient
== END 2017-09-28 17:24 | disposition home or self-care (01) ==
LOC: ED 15:54
DX: J06.9 Acute upper respiratory infection, unspecified (principal)
CPT/HCPCS: 96372; 99282

== ENCOUNTER 2017-10-22 14:38 | Emergency (ER) ==
[2017-10-22 14:44] VITALS: BP 134/99; TEMP 97; BMI 38.0
== END 2017-10-22 16:00 | disposition left against medical advice (07) ==
LOC: ED 14:38
DX: R05 Cough (principal); R68.89 Other general symptoms and signs; J02.9 Acute pharyngitis, unspecified

== ENCOUNTER 2017-11-16 13:53 | Emergency (ER) ==
[2017-11-16 14:01] VITALS: BP 170/110; TEMP 98.2; BMI 36.1
--- NOTE | 2017-11-16 15:49 | ED.PDOC ---
General ED Provider: Dr. THA MAGANA Chief Complaint: Respiratory Complaint Stated Complaint: I have the flu;. Onset this morning. Had 2 episodes of nausea , vomiting plus loose stools yeterday evening. Just feel bad. Time Seen by Physician: 14:10 Mode of Arrival: Walk-In Information Source: Patient Exam Limitations: No limitations Primary Care Provider: YAAKOV [facility] Nursing and Triage Documentation Reviewed and Agree: Yes Reviewed sepsis parameters & appropriate labs ordered?: Yes System Inflammatory Response Syndrome: Not Applicable Sepsis Protocol: For patient's 13 years and over: Temp is 96.8 and below OR 101 and greater Pulse >90 BPM Resp >20/minute Acutely Altered Mental Status Are patient's symptoms suggestive of a new infection, such as: -Pneumonia -Skin, Soft Tissue -Endocarditis -UTI -Bone, Joint Infection -Implantable Device -Acute Abdominal Infection -Wound Infection -Meningitis -Blood Stream Catheter Infection -Unknown System Inflammatory Response Syndrome: Not Applicable GI Complaint Exam - Vomiting/Diarrhea Complaint/Exam Symptoms Are: Resolved Episodes of Vomiting over last 24 Hours: 2 Episodes of Diarrhea Over Last 24 Hours: 2 Initial Severity: Mild Current Severity: None Character of Vomiting: Reports: Non-bilious Character of Diarrhea: Reports: Watery Aggravating: Reports: None Alleviating: Reports: None Associated Signs and Symptoms: Denies: Dizziness, Light-headedness, Melena, Hematemesis, Fever, Abdominal pain, Cramping Related History: Reports: Similar episode Non-GI Risk Factors: Reports: None Surgical Obstruction Risk Factors: Reports: None Related Surgical History: Reports: None Abdominal Findings: Present: None Review of Systems - Review Of Systems Constitutional: Denies: Chills, Diaphoresis, Weakness Eyes: Reports: No symptoms Ears, Nose, Mouth, Throat: Reports: No symptoms Respiratory: Reports: No symptoms Cardiac: Reports: No symptoms GI: Reports: Nausea, Poor appetite, Vomiting : Reports: No symptoms Musculoskeletal: Reports: No symptoms Skin: Reports: No symptoms Neurological: Reports: No symptoms Endocrine: Reports: No symptoms Hematologic/Lymphatic: Reports: No symptoms All Other Systems: Reviewed and Negative Past Medical History - Past Medical History Previously Healthy: Yes Endocrine: Reports: Hypothyroid Cardiovascular: Reports: Hypertension, A-Fib, Other (heart murmur) Respiratory: Reports: Other ( hx bilateral otitis) Hematological: Reports: Other (hx polycythemia vera) Gastrointestinal: Reports: None, Gallstones Genitourinary: Reports: None Neuro/Psych: Reports: Anxiety, Depression, Other (MR (mental retardation)) Musculoskeletal: Reports: None Cancer: Reports: None Other Pertinent Past Medical History: 04/23/17bilateral otitis, (mental retardation) - Surgical History General Surgical History: Reports: None, Cholecystectomy, Hernia Repair ( inguinal hernia repair), Other (ear surgery- bilat myrigotomy), Unknown ( gallbladder, ear surgery, inguinal hernia repair) - Family History Family History: Reports: Unknown - Social History Smoking Status: Never smoker Hx Substance Use: No Alcohol Screening: None - Immunizations Tetanus Shot up to Date: Yes Influenza Vaccine within 12 Months: No Pneumococcal Vaccine up to Date: No Physical Exam - Physical Exam Appearance: Well-appearing Ill-appearing: None Pain Distress: None Eyes: ESSENCE, EOMI, Conjunctiva clear ENT: Ears normal, Nose normal, Oropharynx normal Respiratory: Airway patent, Breath sounds clear, Breath sounds equal Cardiovascular: RRR, Pulses normal, No rub, No murmur GI/: Soft, No masses, No Organomegaly, Tender, Bowel sounds hyperactive Musculoskeletal: Normal strength Skin: Warm Neurological: Sensation intact Psychiatric: Affect appropriate, Anxious Critical Care Note - Critical Care Note Total Time (mins): 0 Course - Course Hematology/Chemistry: 11/16/17 16:00 11/16/17 16:00 Orders, Labs, Meds: Lab Review 11/16/17 11/16/17 11/16/17 16:00 16:00 16:00 WBC 12.11 H RBC 5.52 Hgb 15.5 Hct 46.6 MCV 84.4 MCH 28.1 MCHC 33.3 RDW Coeff of Mera 15.3 H Plt Count 147 Immature Gran % (Auto) 0.9 Neut % (Auto) 79.8 Lymph % (Auto) 9.[address] % (Auto) 8.8 Eos % (Auto) 0.4 Baso % (Auto) 0.4 Immature Gran # (Auto) 0.1 Neut # 9.7 H Lymph # 1.2 [place] # 1.1 Eos # 0.1 Baso # 0.1 Sodium 141 Potassium 4.3 Chloride 104 Carbon Dioxide 29 Anion Gap 12.3 BUN 15 Creatinine 1.06 Estimated GFR (MDRD) 78.00 BUN/Creatinine Ratio 14.15 Glucose 86 Calcium 9.3 Total Bilirubin 0.9 AST 20 ALT 25 Alkaline Phosphatase 72 Total Protein 6.5 Albumin 3.6 Globulin 2.9 Albumin/Globulin Ratio 1.24 Urine Color Urine Clarity Urine pH Ur Specific [place] Urine Protein Urine Glucose (UA) Urine Ketones Urine Blood Urine Nitrite Urine Bilirubin Urine Urobilinogen Ur Leukocyte Esterase Influenza A (Rapid) Negative by naat Influenza B (Rapid) Negative by naat 11/16/17 16:52 WBC RBC Hgb Hct MCV MCH MCHC RDW Coeff of Mera Plt Count Immature Gran % (Auto) Neut % (Auto) Lymph % (Auto) [place] % (Auto) Eos % (Auto) Baso % (Auto) Immature Gran # (Auto) Neut # Lymph # [place] # Eos # Baso # Sodium Potassium Chloride Carbon Dioxide Anion Gap BUN Creatinine Estimated GFR (MDRD) BUN/Creatinine Ratio Glucose Calcium Total Bilirubin AST ALT Alkaline Phosphatase Total Protein Albumin Globulin Albumin/Globulin Ratio Urine Color Yellow Urine Clarity Clear Urine pH 6.0 Ur Specific [place] 1.015 Urine Protein Negative Urine Glucose (UA) Negative Urine Ketones Negative Urine Blood Negative Urine Nitrite Negative Urine Bilirubin Negative Urine Urobilinogen 1.0 Ur Leukocyte Esterase Negative Influenza A (Rapid) Influenza B (Rapid) Orders Category Date Time Status CBC W/ AUTO DIFF Stat LAB 11/16/17 16:00 Completed CMP [COMPREHENSIVE METABOLIC PANEL] Stat LAB 11/16/17 16:00 Completed FLU A/B MOLECULAR Stat LAB 11/16/17 16:00 Completed RAPID STREP SCREEN [MOLECULAR GROUP A STREP] Stat LAB 11/16/17 16:00 Completed URINALYSIS C & S IF INDICATED Stat LAB 11/16/17 16:52 Completed Amoxicillin [Amoxil] MEDS 11/16/17 18:39 Discontinued 500 mg PO ONCE STA Ondansetron [Zofran Odt] MEDS 11/16/17 15:54 Discontinued 4 mg PO ONCE STA ABDOMEN, SERIES FLAT & UPRIGHT Stat RADS 11/16/17 15:54 Completed CHEST W/ APICAL LORDOTIC VIEW Stat RADS 11/16/17 15:54 Completed Medications Discontinued Medications Generic Name Dose Route Start Last Admin Trade Name Freq PRN Reason Stop Dose Admin Amoxicillin 500 mg 11/16/17 18:39 11/16/17 18:46 Amoxil PO 11/16/17 18:40 500 mg ONCE STA Administration Ondansetron HCl 4 mg 11/16/17 15:54 11/16/17 16:13 Zofran Odt PO 11/16/17 15:55 4 mg ONCE STA Administration Vital Signs: Temp Pulse Resp BP Pulse Ox 11/16/17 13:54 98.2 F 95 H 18 170/110 H 98 Departure - Departure Time of Disposition: 19:45 Disposition: HOME SELF-CARE Discharge Problem: Pharyngitis Instructions: Strep Throat (ED) Condition: Good Pt referred to PMD for follow-up: Yes IPMP verified?: No Additional Instructions: TAKE MEDICATIONS PRESCRIBED FOLLOW UP WITH YOUR DOCTOR Prescriptions: Amoxicillin 500 mg PO TID #30 tablet Allergies/Adverse Reactions: Allergies isolome Adverse Reaction (Uncoded 11/16/17 14:06) Home Medications: Ambulatory Orders Aspirin [Aspirin Chewable] 81 mg PO DAILY 05/23/13 Amoxicillin 500 mg PO TID #30 tablet 11/16/17 Disposition Discussed With: Patient
[2017-11-16] MEDS ORDERED: ZOFRAN ODT PO STA (15:54)
--- NOTE | 2017-11-16 16:46 | DI ---
Exam: Two-view abdomen. Date: 11/16/2017. Comparison: None. HISTORY: Flu-like symptoms. FINDINGS: No free air seen under the diaphragm. There is a levoscoliotic curve in the lumbar spine. Surgical clips are present right upper quadrant and mesh from probable bilateral inguinal hernia rep airs is present. Gas is scattered throughout nondistended loops of small bowel. There is fecal mate rial throughout the majority of the colon. The bony pelvis is within normal limits. Impression: Nonobstructive bowel gas pattern. However there is fecal material throughout the majori ty of the colon. This is nonspecific, but would be compatible with a clinical diagnosis of constipat ion. Cholecystectomy and probable bilateral inguinal hernia repairs.
--- NOTE | 2017-11-16 16:46 | DI ---
Exam: Single view chest x-ray. Date: 11/16/2017. Comparison: 08/27/2017. HISTORY: Flu-like symptoms. FINDINGS: The osseous structures are normal. The lungs are clear. The cardiac silhouette is enlarg ed. Pulmonary vasculature is normal. There are granulomatous calcifications. Impression: No acute intrathoracic findings. Cardiomegaly with old granulomatous disease.
[2017-11-16] MEDS ORDERED: AMOXIL PO STA (18:39)
== END 2017-11-16 19:30 | disposition home or self-care (01) ==
LOC: ED 13:53
DX: J02.0 Streptococcal pharyngitis (principal)
CPT/HCPCS: 36415; 80053; 81001; 85025; 87502; 87651; 99283

== ENCOUNTER 2017-12-15 14:41 | Emergency (ER) | payer OTHER ==
[2017-12-15 14:49] VITALS: BP 157/98; TEMP 97.8; BMI 36.8
--- NOTE | 2017-12-15 14:58 | ED.PDOC ---
General ED Provider: Dr. THA ESTRADA-ER Chief Complaint: Non-specific Complaint Stated Complaint: he notes having sinus congestion and pressure Time Seen by Physician: 14:56 Mode of Arrival: Walk-In Information Source: Patient, Family Exam Limitations: No limitations Primary Care Provider: [facility]OV [facility]AS[facility] Nursing and Triage Documentation Reviewed and Agree: Yes Reviewed sepsis parameters & appropriate labs ordered?: Yes System Inflammatory Response Syndrome: Not Applicable Sepsis Protocol: For patient's 13 years and over: Temp is 96.8 and below OR 101 and greater Pulse >90 BPM Resp >20/minute Acutely Altered Mental Status Are patient's symptoms suggestive of a new infection, such as: -Pneumonia -Skin, Soft Tissue -Endocarditis -UTI -Bone, Joint Infection -Implantable Device -Acute Abdominal Infection -Wound Infection -Meningitis -Blood Stream Catheter Infection -Unknown Respiratory Complaint Exam - Respiratory Complaint/Exam Onset/Duration: 24 hrs Symptoms Are: Still present Timing: Constant Initial Severity: Mild Current Severity: Moderate Location: Nose Character: Reports: Productive cough Aggravating: Reports: URI Alleviating: Reports: None Associated Signs and Symptoms: Reports: Nasal congestion. Denies: Rapid breathing, Dyspnea, Fever, Chills, Chest pain, Pleuritic chest pain, Wheezing, Hemoptysis, Dizziness, Calf pain, Hoarseness, Sinus discomfort, Vomiting, Sore throat, Weight loss, Decreased oral intake, Increased appetite Related Surgical History: Reports: None Cardiac Risk Factors: Reports: None Pseudomonas Risk Factors: Reports: None Tuberculosis Risk Factors: Reports: None Home Oxygen Use: No Recent Stress Test: No Recent Echo/LV Function: No Current Antibiotic Use: No Current Asthma Medication Use: No Respiratory Distress: None Inadequate Respiratory Effort: No Dysphagia Present: No Stridor Present: No Accessory Muscle Use: No Diminished Breath Sounds: No Sinus Tenderness: Maxillary Grunting Respirations: No Kussmaul Respirations: No Differential Diagnoses: Sinusitis Review of Systems - Review Of Systems Constitutional: Reports: No symptoms Eyes: Reports: No symptoms Ears, Nose, Mouth, Throat: Reports: Nose discharge Respiratory: Reports: No symptoms Cardiac: Reports: No symptoms GI: Reports: No symptoms : Reports: No symptoms Musculoskeletal: Reports: No symptoms Skin: Reports: No symptoms Neurological: Reports: No symptoms Endocrine: Reports: No symptoms Hematologic/Lymphatic: Reports: No symptoms All Other Systems: Reviewed and Negative Past Medical History - Past Medical History Previously Healthy: Yes Endocrine: Reports: Hypothyroid Cardiovascular: Reports: Hypertension, A-Fib, Other (heart murmur) Respiratory: Reports: Other ( hx bilateral otitis) Hematological: Reports: Other (hx polycythemia vera) Gastrointestinal: Reports: None, Gallstones Genitourinary: Reports: None Neuro/Psych: Reports: Anxiety, Depression, Other (MR (mental retardation)) Musculoskeletal: Reports: None Cancer: Reports: None Other Pertinent Past Medical History: 04/23/17bilateral otitis, (mental retardation) - Surgical History General Surgical History: Reports: None, Cholecystectomy, Hernia Repair ( inguinal hernia repair), Other (ear surgery- bilat myrigotomy), Unknown ( gallbladder, ear surgery, inguinal hernia repair) - Family History Family History: Reports: Unknown - Social History Smoking Status: Never smoker Hx Substance Use: No Alcohol Screening: None - Immunizations Tetanus Shot up to Date: Yes Influenza Vaccine within 12 Months: No Pneumococcal Vaccine up to Date: No Physical Exam - Physical Exam Appearance: Well-appearing, No pain distress, Well-nourished Pain Distress: Mild Eyes: ESSENCE, EOMI, Conjunctiva clear ENT: Rhinorrhea Neck: Supple Respiratory: Airway patent, Breath sounds clear, Breath sounds equal, Respirations nonlabored, Crackles Cardiovascular: RRR GI/: Soft Musculoskeletal: Normal strength Skin: Warm, Dry, Normal color Neurological: Sensation intact, Motor intact, Reflexes intact, Cranial nerves intact, Alert, Oriented Psychiatric: Affect appropriate Critical Care Note - Critical Care Note Total Time (mins): 0 Course - Course Vital Signs: Temp Pulse Resp BP Pulse Ox 12/15/17 14:44 97.8 F 109 H 19 157/98 H 96 Departure - Departure Time of Disposition: 14:58 Disposition: HOME SELF-CARE Discharge Problem: Sinusitis Qualifiers: Sinusitis location: unspecified location Chronicity: acute Recurrence: non- recurrent Qualified Code(s): J01.90 - Acute sinusitis, unspecified Instructions: Sinusitis (ED) Condition: Good Pt referred to PMD for follow-up: Yes IPMP verified?: No Additional Instructions: augmentin 875mg bid x 10 days --flonase nsal spray one puff each nostdril bisd - --f/u with pcp Allergies/Adverse Reactions: Allergies isolome Adverse Reaction (Uncoded 11/16/17 14:06) Home Medications: Ambulatory Orders Aspirin [Aspirin Chewable] 81 mg PO DAILY 05/23/13 Disposition Discussed With: Patient, Family
== END 2017-12-15 15:15 | disposition home or self-care (01) ==
LOC: ED 14:41
DX: J01.90 Acute sinusitis, unspecified (principal)
CPT/HCPCS: 99282

== ENCOUNTER 2017-12-28 16:08 | Emergency (ER) ==
[2017-12-28 16:12] VITALS: BP 156/115; TEMP 98.7; BMI 35.9
--- NOTE | 2017-12-28 16:21 | ED.PDOC ---
General ED Provider: Dr. THA MAGANA Chief Complaint: Earache Stated Complaint: ONSET LAST 2 DAYS. BILATERALLY RT > LT . DENIES FEVER, CHILLS OR NIGHT SWEATS. Time Seen by Physician: 15:50 Mode of Arrival: Walk-In Information Source: Patient Exam Limitations: No limitations Primary Care Provider: YAAKOV BALDERAS-[facility] Nursing and Triage Documentation Reviewed and Agree: Yes Reviewed sepsis parameters & appropriate labs ordered?: Yes System Inflammatory Response Syndrome: Not Applicable Sepsis Protocol: For patient's 13 years and over: Temp is 96.8 and below OR 101 and greater Pulse >90 BPM Resp >20/minute Acutely Altered Mental Status Are patient's symptoms suggestive of a new infection, such as: -Pneumonia -Skin, Soft Tissue -Endocarditis -UTI -Bone, Joint Infection -Implantable Device -Acute Abdominal Infection -Wound Infection -Meningitis -Blood Stream Catheter Infection -Unknown System Inflammatory Response Syndrome: Not Applicable Review of Systems - Review Of Systems Constitutional: Reports: No symptoms Eyes: Reports: No symptoms, Foreign body sensation Ears, Nose, Mouth, Throat: Reports: Ear pain Respiratory: Reports: No symptoms Cardiac: Reports: No symptoms GI: Reports: No symptoms : Reports: No symptoms Musculoskeletal: Reports: No symptoms Skin: Reports: No symptoms Neurological: Reports: No symptoms Endocrine: Reports: No symptoms Hematologic/Lymphatic: Reports: No symptoms All Other Systems: Reviewed and Negative Past Medical History - Past Medical History Previously Healthy: Yes Endocrine: Reports: Hypothyroid Cardiovascular: Reports: Hypertension, A-Fib, Other (heart murmur) Respiratory: Reports: Other ( hx bilateral otitis) Hematological: Reports: Other (hx polycythemia vera) Gastrointestinal: Reports: None, Gallstones Genitourinary: Reports: None Neuro/Psych: Reports: Anxiety, Depression, Other (MR (mental retardation)) Musculoskeletal: Reports: None Cancer: Reports: None Other Pertinent Past Medical History: 04/23/17bilateral otitis, (mental retardation) - Surgical History General Surgical History: Reports: None, Cholecystectomy, Hernia Repair ( inguinal hernia repair), Other (ear surgery- bilat myrigotomy), Unknown ( gallbladder, ear surgery, inguinal hernia repair) - Family History Family History: Reports: Unknown - Social History Smoking Status: Never smoker Hx Substance Use: No Alcohol Screening: None - Immunizations Tetanus Shot up to Date: Yes Influenza Vaccine within 12 Months: No Pneumococcal Vaccine up to Date: No Physical Exam - Physical Exam Appearance: Well-appearing, Obese Ill-appearing: None Eyes: Conjunctiva clear, Conjunctiva inflammed ENT: Ears normal, Nose normal, Oropharynx normal (BILAT TM DULL AND FULL; RT PERIPERERAL ERYTHREMA) Neck: Nonsupple Respiratory: Airway patent, Breath sounds clear, Breath sounds equal Cardiovascular: RRR, Pulses normal, No rub, No murmur GI/: Soft, Nontender, No masses, Bowel sounds normal Musculoskeletal: Normal strength, ROM intact, No edema Skin: Warm, Dry, Normal color Neurological: Sensation intact, Motor intact Psychiatric: Affect appropriate, Mood appropriate Critical Care Note - Critical Care Note Total Time (mins): 0 Course - Course Vital Signs: Temp Pulse Resp BP Pulse Ox 12/28/17 16:09 98.7 F 80 16 156/115 H 97 Departure - Departure Time of Disposition: 16:30 Disposition: HOME SELF-CARE Discharge Problem: Otitis Qualifiers: Laterality: right Qualified Code(s): H66.91 - Otitis media, unspecified, right ear Condition: Good Pt referred to PMD for follow-up: Yes IPMP verified?: No Allergies/Adverse Reactions: Allergies isolome Adverse Reaction (Uncoded 12/28/17 16:14) Home Medications: Ambulatory Orders Aspirin [Aspirin Chewable] 81 mg PO DAILY 05/23/13 Amoxicillin 875 mg PO BID #20 tablet 12/28/17
== END 2017-12-28 16:52 | disposition home or self-care (01) ==
LOC: ED 16:08
DX: H66.91 Otitis media, unspecified, right ear (principal)
CPT/HCPCS: 99282

== ENCOUNTER 2018-01-14 14:45 | Emergency (ER) ==
[2018-01-14 15:01] VITALS: BP 136/93; TEMP 99.9; BMI 34.9
--- NOTE | 2018-01-14 16:17 | CT ---
EXAM: CT head without contrast. HISTORY: Visual hallucinations. Altered mental status. COMPARISON: None available. TECHNIQUE: Multiple axial images of the brain were obtained from the skull base through the vertex w ithout intravenous contrast. Multiplanar reformats were provided. FINDINGS: There is no intracranial hemorrhage. Prominent CSF space in the lateral aspect of the lef t posterior fossa on axial image 8 could represent a small arachnoid cyst. No associated mass effect identified. The ann-white differentiation is maintained without evidence for acute large vascular t erritory infarction. The cortical sulci and basal cisterns are well visualized. There is no hydroce phalus, mass effect, or midline shift. Moderate ethmoid and mild sphenoid sinus mucosal thickening n oted. Otherwise, the paranasal sinuses and mastoid air cells are clear. The calvarium is intact. IMPRESSION: No acute intracranial abnormality.
--- NOTE | 2018-01-14 17:00 | ED.PDOC ---
General ED Provider: Dr. JEAN PAUL DEVLIN Chief Complaint: Psychiatric Complaint Stated Complaint: VISUAL HALLUCINATION Time Seen by Physician: 15:00 Mode of Arrival: Walk-In Information Source: Patient, Assisted Living Exam Limitations: No limitations Primary Care Provider: YAAKOV HUERTA Referred to ED by: Other (VISUAL HALLUCINATION) Nursing and Triage Documentation Reviewed and Agree: Yes Reviewed sepsis parameters & appropriate labs ordered?: Yes System Inflammatory Response Syndrome: Not Applicable Sepsis Protocol: For patient's 13 years and over: Temp is 96.8 and below OR 101 and greater Pulse >90 BPM Resp >20/minute Acutely Altered Mental Status Are patient's symptoms suggestive of a new infection, such as: -Pneumonia -Skin, Soft Tissue -Endocarditis -UTI -Bone, Joint Infection -Implantable Device -Acute Abdominal Infection -Wound Infection -Meningitis -Blood Stream Catheter Infection -Unknown System Inflammatory Response Syndrome: Not Applicable (NOTRAUMA) Miscellaneous Complaint Exam - Complex/Multi-System Complaint/Exam Onset/Duration: TODAY STARTED TO HAVE VISUAL HALLUCINATION. UNABLLE TO DISCIBE Symptoms Are: Still present Episodes Lasting: Hours Initial Severity: Mild Current Severity: Mild Location of Pain: 0 Associated Signs and Symptoms: Denies: Decreased responsiveness, Confusion, Agitation, Dizziness, Weakness, Syncope, Headache, Short of air, Cough, Wheezing , Hemoptysis, Chest pain, Palpitations, Edema, Nausea, Vomiting, Diarrhea, Abdominal pain, Back pain, Dysuria, Hematemesis, Melena, Decreased oral intake, Fever, Diaphoresis, Immunocompromised, Anticoagulation Therapy, Recent medication changes, Indwelling medical investigator, Prior MRSA, Prior VRE, Recent trauma, Remote trauma Recent Echo/LV Function: No JVD Present: No Tachypnea Present: No Stridor Present: No Abdominal Findings: Present: Normal findings Glascow Coma Scale (see protocol): 15 Meningeal Signs Positive: No Focal Weakness: Present: None Focal Sensory Loss: Present: None Gait: Normal Gag Reflex Present: Yes Babinski Sign: Negative Right, Negative Left Skin Findings: Present: Normal findings Differential Diagnosis: Closed Cranial Trauma, Metabolic Abnormality Review of Systems - Review Of Systems Constitutional: Reports: No symptoms Eyes: Reports: No symptoms Ears, Nose, Mouth, Throat: Reports: No symptoms Respiratory: Reports: No symptoms Cardiac: Reports: No symptoms GI: Reports: No symptoms : Reports: No symptoms Musculoskeletal: Reports: No symptoms Skin: Reports: No symptoms Neurological: Reports: Other (VISUAL HALLUCINATION) Endocrine: Reports: No symptoms Hematologic/Lymphatic: Reports: No symptoms All Other Systems: Reviewed and Negative Past Medical History - Past Medical History Previously Healthy: Yes Endocrine: Reports: Hypothyroid Cardiovascular: Reports: Hypertension, A-Fib, Other (heart murmur) Respiratory: Reports: Other ( hx bilateral otitis) Hematological: Reports: Other (hx polycythemia vera) Gastrointestinal: Reports: None, Gallstones Genitourinary: Reports: None Neuro/Psych: Reports: Anxiety, Depression, Other (MR (mental retardation)) Musculoskeletal: Reports: None Cancer: Reports: None Other Pertinent Past Medical History: 04/23/17bilateral otitis, (mental retardation) - Surgical History General Surgical History: Reports: None, Cholecystectomy, Hernia Repair ( inguinal hernia repair), Other (ear surgery- bilat myrigotomy), Unknown ( gallbladder, ear surgery, inguinal hernia repair) - Family History Family History: Reports: Unknown - Social History Smoking Status: Never smoker Hx Substance Use: No Alcohol Screening: None - Immunizations Influenza Vaccine within 12 Months: No Pneumococcal Vaccine up to Date: No Physical Exam - Physical Exam Appearance: Well-appearing, No pain distress, Well-nourished Eyes: ESSENCE, EOMI, Conjunctiva clear ENT: Ears normal, Nose normal, Oropharynx normal Respiratory: Airway patent, Breath sounds clear, Breath sounds equal, Respirations nonlabored Cardiovascular: RRR, Pulses normal, No rub, No murmur GI/: Soft, Nontender, No masses, Bowel sounds normal, No Organomegaly Musculoskeletal: Normal strength, ROM intact, No edema, No calf tenderness Skin: Warm, Dry, Normal color Neurological: Sensation intact, Motor intact, Reflexes intact, Cranial nerves intact, Alert, Oriented Psychiatric: Affect appropriate, Mood appropriate Interpretation - Radiology Interpretation Radiology Interpretation By: Radiologist Radiology Results: No acute changes Critical Care Note - Critical Care Note Total Time (mins): 0 Course - Course Hematology/Chemistry: 01/14/18 15:33 01/14/18 15:33 Orders, Labs, Meds: Lab Review 01/14/18 01/14/18 15:33 15:33 WBC 7.65 RBC 6.05 Hgb 16.0 Hct 49.6 MCV 82.0 MCH 26.4 L MCHC 32.3 RDW Coeff of Mera 14.5 Plt Count 150 Immature Gran % (Auto) 0.3 Neut % (Auto) 66.8 Lymph % (Auto) 21.3 Schley % (Auto) 9.0 Eos % (Auto) 1.7 Baso % (Auto) 0.9 Immature Gran # (Auto) 0.0 Neut # (Auto) 5.1 Lymph # (Auto) 1.6 Schley # (Auto) 0.7 Eos # (Auto) 0.1 Baso # (Auto) 0.1 Sodium 139 Potassium 3.7 Chloride 105 Carbon Dioxide 23 Anion Gap 14.7 BUN 10 Creatinine 0.98 Estimated GFR (MDRD) 85.00 BUN/Creatinine Ratio 10.20 Glucose 97 Calcium 9.4 Total Bilirubin 1.3 H AST 26 ALT 25 Alkaline Phosphatase 86 Total Protein 6.7 Albumin 4.0 Globulin 2.7 Albumin/Globulin Ratio 1.48 Salicylate Level mg/dL < 5.0 Acetaminophen < 3 L Plasma/Serum Alcohol < 10.0 Orders Category Date Time Status ED TIRE BAGGER APPLIED ONCE EMERGENCY 01/14/18 15:22 Inactive ACETAMINOPHEN Stat LAB 01/14/18 15:33 Completed BLOOD ALCOHOL Stat LAB 01/14/18 15:33 Completed CBC W/ AUTO DIFF Stat LAB 01/14/18 15:33 Completed COMPREHENSIVE METABOLIC PANEL Stat LAB 01/14/18 15:33 Completed DRUG SCREEN, URINE, RAPID Stat LAB 01/14/18 15:22 Ordered SALICYLATE Stat LAB 01/14/18 15:33 Completed URINALYSIS C & S IF INDICATED Stat LAB 01/14/18 15:[address] HEAD W/O CONTRAST Stat RADS 01/14/18 15:22 Completed Vital Signs: Temp Pulse Resp BP Pulse Ox 01/14/18 14:50 99.9 F H 99 H 16 136/93 H 95 Departure - Departure Time of Disposition: 17:00 Disposition: HOME SELF-CARE Discharge Problem: Visual hallucination Instructions: Psychotic Disorder (ED) Condition: Good Pt referred to PMD for follow-up: Yes IPMP verified?: No Allergies/Adverse Reactions: Allergies isolome Adverse Reaction (Uncoded 01/14/18 14:50) Home Medications: Ambulatory Orders Acetaminophen [Tylenol] 650 mg PO Q4H PRN 01/14/18
== END 2018-01-14 17:11 | disposition home or self-care (01) ==
LOC: ED 14:45
DX: R44.1 Visual hallucinations (principal)
CPT/HCPCS: 36415; 80053; 80307; 85025; 99283

== ENCOUNTER 2018-01-15 02:52 | Outpatient (CLI) | payer OTHER ==
[2018-01-14 15:01] VITALS: BMI 34.9
== END 2018-01-15 02:53 | disposition short-term general hospital (02) ==
LOC: AMBL 02:52
PROVIDERS: ATTEND Internal Medicine Geriatric Medicine
DX: F91.9 Conduct disorder, unspecified (principal)

== ENCOUNTER 2018-01-21 15:42 | Outpatient (CLI) ==
--- NOTE | 2018-01-21 16:46 | DI ---
EXAM: PA and lateral views of the chest HISTORY: Hemoptysis COMPARISON: Chest x-ray 11/16/2017 and priors FINDINGS: The cardiomediastinal silhouette is normal. There is no pneumothorax or pleural effusion. There is no consolidation, nodule or mass. The osseous structures are unremarkable. IMPRESSION: No acute cardiopulmonary process
== END 2018-01-21 15:43 | disposition home or self-care (01) ==
LOC: RAD 15:42
PROVIDERS: ATTEND Nurse Practitioner Family
DX: R04.2 Hemoptysis (principal)

== ENCOUNTER 2018-02-05 11:33 | Outpatient (CLI) | payer OTHER | END 2018-02-05 11:34 | disposition home or self-care (01) | LOC: RHC-LAB 11:33 | PROVIDERS: ATTEND Emergency Medicine | DX: E78.5 Hyperlipidemia, unspecified (principal); E03.9 Hypothyroidism, unspecified; Z12.5 Encounter for screening for malignant neoplasm of prostate | CPT/HCPCS: 36415; 80053; 80061; 84443; 85025 ==

== ENCOUNTER 2018-08-27 08:28 | Outpatient (CLI) | END 2018-08-27 08:29 | disposition home or self-care (01) | LOC: CAR 08:28 | PROVIDERS: ATTEND Surgery Surgical Oncology | DX: Z01.810 Encounter for preprocedural cardiovascular examination (principal) | CPT/HCPCS: 93005; 93010 ==